=== PATIENT | male | born 1930 | race Caucasian/White ===

== ENCOUNTER 2016-09-23 00:13 | Day surgery (SDC) | payer MEDICARE ==
[~2016-09-23] VITALS: Ht 193 cm; Wt 93.0 kg
[2016-09-23] VITALS (10 sets, daily range): BP systolic 123–142; BP diastolic 67–99; PULSE 67–80; RESP 14–24; O2SAT 95–98
[~2016-09-23 00:13] MED LIST: AGM875T PO; FLUT15.88 NS; FURO40SO4 PO; METO25TA6 PO; POTA-62 PO; SPIR25TA3 PO; TAMS0.4C29 PO; WARF5TAB7 PO; [UNRECOGNIZED DRUG - CODE] TP
[2016-09-23] MEDS ORDERED: Heparin 1,000 Units/500 mL NS Premix IV ONE (12:16)
[2016-09-23] MEDS ORDERED: 0.9% Sodium Chloride 1,000 ML ONE (12:16)
[2016-09-23] MEDS ORDERED: Heparin 5,000 Units/500 mL NS Premix IV ONE ×2 (12:16)
[2016-09-23] MEDS ORDERED: 0.9% Sodium Chloride 50 ML ONE (12:22)
[2016-09-23 12:44] LABS: BASOPHILS % (AUTO) 0.3 % (0-3); EOSINOPHILS % (AUTO) 1.3 % (0-5); MONOCYTES % (AUTO) 9.4 % (4-12); Mean Corpuscular Hemoglobin 31.2 pg (27.0-35.0); Mean Corpuscular Volume 95.2 fL (81-100); NEUTROPHILS % (AUTO) 80.6 % (40-74); Platelet Count 212 bil/L (150-400)
[2016-09-23 13:04] LABS: INR 1.22 ratio
--- NOTE | 2016-09-23 13:45 | NUR ---
[facility] ADMIT 85 YR OLD MALE ADMITTED TO [facility] FOR HEART CATH TODAY AT 1200. IVS STARTED, LABS SENT, CONSENT IS SIGNED, AND QUESTIONS WERE ANSWERED. TO FLUTE POLISHER AT 1345.
[2016-09-23] MEDS ORDERED: fentaNYL-PF 50 mCg/mL 2 mL Inj ONE (13:54)
[2016-09-23] MEDS ORDERED: Heparin 1,000 Unit/mL 10 mL Inj ONE (14:04)
[2016-09-23] MEDS ORDERED: 0.9% Sodium Chloride 1,000 ML IV PRN (15:44)
[2016-09-23] MEDS ORDERED: 0.9% Sodium Chloride 250 ML IV PRN (15:44)
[2016-09-23] MEDS ORDERED: Atropine 1 mg/10 mL (Code) Syringe IVPUSH PRN (15:45)
[2016-09-23] MEDS ORDERED: HYDROcodone-APAP 5-325 mg Tablet PO PRN (15:45)
[2016-09-23] MEDS ORDERED: Ondansetron 2 mg/mL 2 mL Inj IVPUSH PRN (15:45)
[2016-09-23] MEDS ORDERED: FURO40TA4 PO (16:45)
--- NOTE | 2016-09-23 18:38 | NUR ---
[facility] DISCHARGE PT WAS RECEIVED FROM ADULT NURSE PRACTITIONER AT 1550. RIGHT GROIN WITH STARCLOSE HAS REMAINED SOFT, NON TENDER, NO BLEEDING, OR HEMATOMA NOTED. BEDREST COMPLETED AT 1800. PT AMBULATED TO AND IN [place]. RIGHT GROIN REMAINED STABLE AFTER AMBULATION. DISCHARGE INSTRUCTIONS INCLUDING F/U, MEDICATIONS, AND POST SEDATION AND HEART CATH INSTRUCTIONS WERE REVIEWED WITH PT VERBALIZING UNDERSTANDING. DR CARRILLO CALLED IN NEW MED TORSEMIDE TO [facility] AND PT UNDERSTANDS TO STOP FUROSEMIDE. PT WAS DISCHARGED PER W/C TO CAR AT 1830 WITH JAVA DEVELOPMENT MANAGER IN STABLE CONDITION.
--- NOTE | 2016-10-04 11:33 | PCM.CVCATH ---
Cardiac Cath Report Date of Service Sep 23, 2016 Primary Indication Patient with moderate to severe aortic stenosis and significant pulmonary hypertension. The patient's here for complete heart catheterization to decide if intervention is required for his aortic stenosis and also to further assess his pulmonary hypertension to assist with diuretic therapy. Procedure 1. Right heart catheterization 2. Unsuccessful left heart catheterization 3. Unsuccessful selective coronary angiogram Vascular Access Right common femoral artery Right common femoral vein Procedure Details The patient was brought in to the Financial Aid Advisor in nothing by mouth state. Timeout was taken. The patient was prepped and sterilized in the appropriate fashion. Lidocaine was used for local anesthetic. Using the modified Seldinger technique the right femoral artery was accessed and a 60 cm Raabe sheath was inserted but the tip of the sheath was barely seen at the level of the diaphragm. Thereafter the modified Seldinger technique was used to access the right femoral vein. A 6 Croatian sheath was inserted. A 6 [place]Gisel catheter was then inserted and multiple attempts were made to pass a catheter across the right ventricular outflow track. After multiple attempts the catheter was exchanged for an 8 [place]Gisel catheter with more torque ability. After a few minutes the catheter was able to pass into the pulmonary artery and right heart hemodynamics and saturations and thermodilution cardiac outputs were completed. The catheter was eventually removed. We then proceeded with left heart catheterization by inserting a 6 Croatian FL 4 diagnostic catheter. Unfortunately catheter was not able to reach the left main. Please note the patient is rather tall and was later on discovered after performing the right femoral angiogram, that he has a very tortuous iliofemoral artery and a very tortuous aorta. The catheter was exchanged for 6 Croatian FL 5 which did not reach either. We exchanged for 6 Croatian angle pigtail catheter which was not successful. We tried a 4F VERT 0.038 125 cm catheter and this too was unsuccessful crossing the valve. At this point, I decided to abort any further attempts. Right femoral angiogram was completed to evaluate for closure device and patient received an Exoseal closure device. He was transferred back to [facility] in stable condition. Total contrast: 20 cc Total fluoroscopy dosage: 1752 mGy Total Fluoro time: 31.9 min Estimated blood loss: 25 mL Medications/Fluoro Time See procedure log Findings 1. The pulmonary arterial pressure was 65/23 mmHg with a mean arterial pressure of 39 mmHg. 2. The pulmonary wedge was 22 mmHg. 3. The right ventricular systolic pressure was 66 mmHg with a right ventricular end-diastolic pressure of 5 mmHg. 4. The right atrial pressure was 5 mmHg. 5. Thermodilution cardiac outputs were 4.04, 4.11, 5.10, and 5.22 L/m an average cardiac index was 2.15. 6. Tre cardiac output was 5.15 L/m and Luke index was 2.30. 7. Mixed venous saturation was 56% on room air Aortic systolic pressure was 145/85 mmHg with a mean arterial pressure 114 mmHg and the O2 sats was 89% room air. Summary 1. Elevated right sided heart pressure with elevated pulmonary wedge pressure suggestive of increased LV diastolic pressure. Recommendations Unfortunately we were not able to perform patient's coronary angiogram and to evaluate the gradient across the aortic valve since we were not able to reach the coronary ostia and LV with diagnostic catheters. Patient has severe tortuosity of his aorta, iliac, and femoral arteries which makes it extremities difficult to engage the coronary ostia and to pass catheters into the left ventricle. Plus, the patient is quite tall which makes this even more difficult. Based on the limited data we will try to aggressively diurese him by switching his furosemide to torsemide and see if we can obtain any improvement of his shortness of breath. If not then we will proceed with radial approach to assess his coronaries and perform a pullback across his aortic valve. copies to: Nahtanael Broussard MD, Oscar J MD Sep 29, 2016 17:20
[2016-11-29] MEDS ORDERED: TORS20TA3 PO (17:02)
== END 2016-09-23 23:59 | disposition home or self-care (01) ==
LOC: SOUO 00:13 → EDSTATUS 11:11 → SOUO 23:59
PROVIDERS: ATTEND Internal Medicine Cardiovascular Disease
DX: I35.2 Nonrheumatic aortic (valve) stenosis with insufficiency (principal); Z53.09 Procedure and treatment not carried out because of other contraindication; I77.1 Stricture of artery; I27.2 Other secondary pulmonary hypertension; I48.2 Chronic atrial fibrillation; I10 Essential (primary) hypertension; N40.1 Benign prostatic hyperplasia with lower urinary tract symptoms; Z85.51 Personal history of malignant neoplasm of bladder; Z87.891 Personal history of nicotine dependence; Z79.01 Long term (current) use of anticoagulants
CPT/HCPCS: 36415; 80048; 85025; 85610; 93456; 99152; 99153; C1760; C1766; C1769; J0131; J1200; J1644; J2060; J2250; J3010; J7030; Q9967

== ENCOUNTER 2016-11-30 00:32 | Day surgery (SDC) | payer MEDICARE ==
[2016-11-30] VITALS (12 sets, daily range): BP systolic 119–160; BP diastolic 76–107; PULSE 80–95; RESP 15–19; O2SAT 88–97
[~2016-11-30 00:32] MED LIST changes: -AGM875T PO; -FLUT15.88 NS; -FURO40SO4 PO; -POTA-62 PO; +TORS20TA3 PO; -[UNRECOGNIZED DRUG - CODE] TP
[2016-11-30] MEDS ORDERED: 0.9% Sodium Chloride 1,000 ML ONE ×2 (12:39→13:27)
[2016-11-30 12:44] LABS: BASOPHILS % (AUTO) 0.1 % (0-3); EOSINOPHILS % (AUTO) 0.7 % (0-5); MONOCYTES % (AUTO) 9.5 % (4-12); Mean Corpuscular Hemoglobin 31.7 pg (27.0-35.0); Mean Corpuscular Volume 93.5 fL (81-100); NEUTROPHILS % (AUTO) 77.9 % (40-74); Platelet Count 253 bil/L (150-400)
[2016-11-30 13:05] LABS: INR 1.25 ratio
--- NOTE | 2016-11-30 13:15 | NUR ---
Admitted through [facility] for a heart cath today to evaluate aortic stenosis. Chronic atrial fibrillation - no pain.
[2016-11-30] MEDS ORDERED: Heparin 1,000 Unit/mL 10 mL Inj ONE ×4 (13:26→14:59)
[2016-11-30] MEDS ORDERED: Nitroglycerin 50,000 mcg/250 mL D5W Premix IV ONE (13:26)
[2016-11-30] MEDS ORDERED: Verapamil 2.5 mg/mL 2 mL Inj ONE (13:26)
[2016-11-30] MEDS ORDERED: 0.9% Sodium Chloride 500 ML ONE ×2 (13:37→14:57)
[2016-11-30] MEDS ORDERED: fentaNYL-PF 50 mCg/mL 2 mL Inj ONE (13:57)
[2016-11-30] MEDS ORDERED: 0.9% Sodium Chloride 1,000 ML IV PRN (15:41)
[2016-11-30] MEDS ORDERED: 0.9% Sodium Chloride 1,000 ML IV SCH (15:41)
[2016-11-30] MEDS ORDERED: 0.9% Sodium Chloride 250 ML IV PRN (15:41)
[2016-11-30] MEDS ORDERED: Atropine 1 mg/10 mL (Code) Syringe IVPUSH PRN (15:45)
[2016-11-30] MEDS ORDERED: Ondansetron 2 mg/mL 2 mL Inj IVPUSH PRN (15:45)
[2016-11-30] MEDS ORDERED: HYDROcodone-APAP 5-325 mg Tablet PO PRN (15:45)
--- NOTE | 2016-11-30 16:10 | NUR ---
Returned from dental laboratory supervisor with bilatral TR bands 13cc in each TR Band. Plan to migrate off TR bands at 1745. Right radial attempted but was aborted - unable to thread catheter. Left radial used successfully for study.
--- NOTE | 2016-11-30 18:00 | PCM.CVCATH ---
Cardiac Cath Report Date of Service Nov 30, 2016 Primary Indication This is a 86-year-old male with history of at least moderate to severe aortic stenosis and severe pulmonary hypertension. The patient has completed a right heart catheterization but I was unable to complete the left heart catheterization at that time due to severe tortuosity of the aorta/iliofemoral arteries. We decided to perform the left heart catheterization at a later date which is today via radial approach. Procedure 1. Selective coronary angiogram 2. Left heart catheterization 3. Aortic arch angiogram Vascular Access Right and left radial arteries Procedure Details The patient was prepped and sterilized initially in the right radial artery area. Both radial arteries were palpated and were 2+. Patient was prepped and sterilized and draped for right radial access. Timeout was taken. Local anesthetic to the right radial region was obtained with lidocaine 1%. The ultrasound was used for guidance and the right radial artery was obtained with the micropuncture needle. The 5 [place] glide sheath was inserted into the right radial artery. This sheath was flushed with verapamil 1 mg and nitroglycerin 200 g and the patient was given 5000 units of intravenous heparin. A 5 [place] FL 4 diagnostic catheter was advanced over a long exchange wire but was unable to pass the right subclavian artery. The catheter was exchanged over the wire for a 5 F FR4 diagnostic catheter and this too was unable to pass. Angiogram was performed to evaluate the anatomy the right subclavian artery. We attempted to use a Glidewire which was able to pass into the aorta and eventually the catheter was inserted into the ascending aorta but was not able to reach left main. There is evidence of significant tortuosity of the right subclavian artery. A pigtail was inserted and aortogram of the thoracic aorta was performed with 12 mL/s for a total of 96 mL of contrast. It was obvious then that the left subclavian artery will be more direct approach into the aorta. The patient was prepped and sterilized again for left radial approach. Again anesthetic was used for local anesthesia and ultrasound was used for guidance. Micropuncture kit was used to obtain arterial access and a 5 [place] sheath was inserted in the left radial artery and the sheath was flushed with usual cocktail. The patient was given an additional 5000 units of IV heparin. The 5F FL4 diagnostic catheter was then inserted and easily engaged in the left main. Left coronary angiography was performed in multiple views. The catheter was exchanged over a long wire for 5 [place] FR4 diagnostic catheter. This catheter was fairly easily engaged in the right coronary ostium and the right coronary angiography was performed in multiple views. The catheter was exchanged over the wire again for a 5 [place] pigtail catheter which was easily passed into the left ventricle. Fluoroscopy was taken to evaluate the aortic valve as well. LV hemodynamics were measured and LV pullback was performed. Catheters were removed and both left and right radial arteries obtain hemostasis with radial band. The patient was transferred back to recovery in stable condition. Medications/Fluoro Time See procedure log Findings 1. Hemodynamics: The left ventricular systolic pressure was estimated at 192 mmHg and the left ventricular end-diastolic pressure was estimated at 9 mmHg. There is significant significant gradient during pullback. Peak to peak mean gradient is 30 mmHg. Aortic systemic pressure was 143/93 mmHg. 2. Selective coronary angiography: A. Left main: There artery has no evidence of significant disease. It bifurcates into the left anterior and left circumflex arteries. B. Left anterior descending artery: There is no evidence of significant disease. C. Left circumflex artery: There is no evidence of significant disease. D. Right coronary artery: This is a dominant vessel and there is no evidence of significant disease. 3. Flouroscopy: Severe calcification aortic valve with minimal excursion most likely consistent with severe aortic stenosis. 4. Aortic arch angiogram: Significant tortuosity of the right subclavian artery and thoracic aorta, but left subclavian artery has no evidence of significant tortuosity. There is no evidence of significant atherosclerosis. Summary 1. No evidence of significant coronary artery disease. 2. Normal LVEDP 3. Severely calcified aortic valve with minimal excursion. Findings are consistent with severe aortic stenosis. 4. At least moderate aortic stenosis but most likely underestimated since this was performed with LV pullback. Recommendations The patient will be referred to [facility] to consider transcatheter aortic valve replacement which I suspect most likely will be performed via apical approach. No changes in regards to the patient's medical therapy. Patient states that his symptoms have marginally improved with doubling his torsemide and continuing with this spironolactone. Possibly his LVEDP has improved with more aggressive diuretic therapy. Please recall that his pulmonary wedge pressure was consistent with increased LV filling pressure. I will suspect that a repeat echocardiogram to reevaluate his right ventricular systolic pressures might be worthwhile to see if his pulmonary hypertension has improved with more aggressive diuretic therapy. copies to: Nathanael Broussard MD, Oscar J MD Nov 30, 2016 18:00
--- NOTE | 2016-11-30 18:51 | NUR ---
Discharge TR bands was deflated gradually. It was removed around 1830. Both sites without bleeding. Radial pulses 2+. Pt. was advised on activity restriction (no lifting > 5 pounds) to prevent radial site bleeding. Pt. reported he understood discharge instructions (F/U appointment, home medications, post sedation care, and post TR band angioplasty care). Otf transported him home at 1845. Pt. discharged with all his belongings.
== END 2016-11-30 23:59 | disposition home or self-care (01) ==
LOC: SOUO 00:32
PROVIDERS: ATTEND Internal Medicine Cardiovascular Disease
DX: I35.0 Nonrheumatic aortic (valve) stenosis (principal); I48.2 Chronic atrial fibrillation; I77.1 Stricture of artery; I27.2 Other secondary pulmonary hypertension; R09.02 Hypoxemia; Z79.01 Long term (current) use of anticoagulants; I10 Essential (primary) hypertension; E78.5 Hyperlipidemia, unspecified; Z85.51 Personal history of malignant neoplasm of bladder; N40.1 Benign prostatic hyperplasia with lower urinary tract symptoms
CPT/HCPCS: 36415; 80048; 85025; 85610; 93458; 99152; 99153; C1769; C1894; J1200; J1644; J2060; J2250; J3010; J7030; J7040; Q9967